=== PATIENT | female | born 1990 | race American Indian/Alaskan Native ===

== ENCOUNTER 2017-10-06 22:45 | Emergency (ER) | payer OTHER ==
[2017-10-06] MEDS ORDERED: MORPHINE IV ONE (23:05)
[2017-10-06] MEDS ORDERED: ZOFRAN IV ONE (23:05)
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
[2017-10-06 23:15] VITALS: BP 107/77
[2017-10-07 01:34] LABS: HCG Qualitative,Urine Negative (Negative)
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
== END 2017-10-07 02:39 | disposition home or self-care (01) ==
LOC: ED 22:45
DX: S39.92XA Unspecified injury of lower back, initial encounter (principal); M54.5 Low back pain; V89.2XXA Person injured in unspecified motor-vehicle accident, traffic, initial encounter; Y93.89 Activity, other specified; Y99.8 Other external cause status; Y92.410 Unspecified street and highway as the place of occurrence of the external cause
CPT/HCPCS: 36415; 72131; 81025; 84703; 96374; 96375; 99284; J2270; J2405; 96365